=== PATIENT | female | born 1980 | race Caucasian/White ===

== ENCOUNTER 2022-12-26 18:40 | Emergency (ER) | payer MEDICARE, MEDICAID, SELFPAY ==
[2022-12-26 18:57] VITALS: BP 117/78; PULSE 76; RESP 18; TEMP 36.7; O2SAT 98; BMI 25.0
--- NOTE | 2022-12-26 18:57 | ED.ANIMALBIT ---
HPI - Animal Bite General Chief Complaint: Animal Bite Stated Complaint: dog bite Time Seen by Provider: 12/26/22 20:33 Source: patient Mode of arrival: ambulatory Limitations: no limitations History of Present Illness HPI narrative: 42-year-old female presents to the ER for evaluation of left 4th finger pain and swelling after she was bit by a stray dog 3 or 4 days ago. She states she was put on Augmentin by her primary care doctor. She is presenting today seeking tetanus shot and rabies series. She reports ongoing pain, swelling, throbbing of the finger with blood under the nail and drainage of green pus at the base of the nail. She is able to flex and extend the finger. No swelling on the pulp of the finger. No fever or chills. complaint: animal bite Onset (ago): day(s) (3) Animal: dog Description of animal: unknown animal Mechanism: bite Pain description: sharp and burning Context: playing with animal Associated symptoms: discharge from wound Treatments prior to arrival: wound dressing(s) Related Data Patient tetanus UTD: No Allergies Allergy/AdvReac Type Severity Reaction Status Date / Time trazodone Allergy Hives Verified 12/26/22 18:57 Review of Systems Review of Systems: Yes all other systems are reviewed and are negative [facility] Social History Social History Advance Directives: No Advance Directives Information Provided: Yes Physical Exam ED Vital Signs: Vital Signs - 24 hr 12/26/22 18:57 Temperature 98.1 F Pulse Rate 76 Respiratory Rate 18 Blood Pressure 117/78 Pulse Oximetry 98 Oxygen Delivery Method Room Air BMI result Body Mass Index 25.0 Appearance: Alert. Oriented X3. No acute distress. HEENT: normal inspection CVS: Normal heart rate and rhythm. Pulses normal. Respiratory: No respiratory distress. Skin: Skin warm and dry. Normal skin color. Normal skin turgor. No rashes. Extremities: left 4th digit with mild swelling of the DIP and distal finger. subungual hematoma of the proximal nail, puncture wound at the base of the nailbed as well as on the pulp of the finger. tender, no fluctuance. no induration. minimal erythma. able to flex and extend at both the PIP and DIP joints. Neuro: Oriented X 3. No motor deficit. No sensory deficit. Course Course Course Narrative: RME: 42yo F w/no sig PMHx c/o dog bite to left 4th digit s/p attempting to pet a stray dog yesterday. Admits saw PCP was started on Augmentin however did not have Tdap or rabies vaccines. Dog's vaccination status is unknown. Patient's tetanus status is unknown + puncture wound noted to left distal 4th digit as well as noted paronychia with distal erythema/swelling and tenderness. Tetanus, rabies vaccine/immune globulin and LMX ordered per patient request Full HPI, ROS and PE to be performed by primary ED provider. Medications Administered Discontinued Medications Generic Name Dose Route Start Last Admin Trade Name Freq PRN Reason Stop Dose Admin Diphtheria/Tetanus/Acell Pertussis 0.5 ml 12/26/22 19:00 12/26/22 20:38 Diphth,Pertus(Acell),Tet Adult 0.5 Ml Syringe IM 12/26/22 19:01 0.5 ml .ONCE ONE Administration Lidocaine HCl 1 appl 12/26/22 19:02 12/26/22 20:00 Lidocaine 4 % Cream Kit TOPICAL 12/26/22 19:03 1 appl ONCE ONE Administration Protocol Rabies Immune Globulin 1,448 unit 12/26/22 19:00 12/26/22 20:33 Rabies Immune Globulin/Pf 300 Unit/Ml Vial 20 unit/kg (1448 unit) 12/26/22 19:01 1,448 unit IM Administration ONCE ONE Rabies Vaccine Human Diploid Cell 1 ml 12/26/22 19:00 12/26/22 20:33 Rabies Vaccine, Human Diploid (Imovax) 1 Ml Vial IM 12/26/22 19:01 1 ml .ONCE ONE Administration Medical Decision Making Medical Decision Making MDM Narrative: 42-year-old female presents to the ER for evaluation of left 4th digit pain, swelling, drainage of pus after she was bit by a dog a couple of days ago. She is on Augmentin. She is here for Tdap and rabies series initiation. Exam with some swelling at the nail bed, erythema. I&D performed with minimal pus, some bleeding present. There is also a small subungual hematoma. Will defer nail trephonation today. tdap and rabies given. she has abx at home. no evidence of ascending infection, deeper infection such as tenosynovitis We discussed the importance of local wound care and to monitor for worsening signs or symptoms of infection. Return precautions were discussed. Stable for discharge home. Patient agrees with plan Differential Diagnosis Differential Diagnoses: The differential diagnosis associated with the presentation includes dog bite, infected dog bite, paronychia, felon, tenosynovitis Prescription Management I considered prescription management with: Pain Medication and Antibiotic Procedures Abscess I/D Site: hand Side (if applicable): left Local Anesthetic: other anesthetic (lmx) Technique: incised with blade Sent for culture/gram staining?: No Irrigation: Yes Packing used?: none Complications: pain and bleeding Critical Care Time Critical Care Time Critical Care Time: No Discharge Plan Discharge Clinical Impression: Dog bite Patient Disposition: Home, Self-Care Instructions: Animal Bite (ED) Additional Instructions: Continue the previously prescribed antibiotics. Complete the entire course and do not miss any doses. Soak your finger in warm soapy water 3 times per day. Ice and elevate the hand as needed for pain and swelling. Take Motrin and Tylenol alternating around the clock for pain. If you develop new or worsening symptoms call 911 or come back to the ER for further evaluation.
[2022-12-26] MEDS: Lidocaine 4 % Cream KIT 1 APPL TOPICAL (20:00)
[2022-12-26] MEDS: Rabies Vaccine, Human Diploid (Imovax) 1 ML VIAL IM (20:33)
[2022-12-26] MEDS: Rabies Immune Globulin/PF 300 UNIT/ML VIAL 1448 UNIT IM (20:33)
[2022-12-26] MEDS: Diphth,Pertus(ACell),Tet Adult 0.5 ML SYRINGE IM (20:38)
[2022-12-26 21:30] VITALS: BP 123/63; PULSE 74; RESP 18; O2SAT 98
== END 2022-12-26 21:30 | disposition home or self-care (01) ==
PROVIDERS: Emergency Provider Student in an Organized Health Care Education/Training Program
DX: S61.355A Open bite of left ring finger with damage to nail, initial encounter (principal); S60.142A Contusion of left ring finger with damage to nail, initial encounter; W54.0XXA Bitten by dog, initial encounter; L03.012 Cellulitis of left finger; Y93.9 Activity, unspecified; Y92.9 Unspecified place or not applicable; Y99.9 Unspecified external cause status; Z20.3 Contact with and (suspected) exposure to rabies
CPT/HCPCS: 10060; 90375; 90471; 90675; 90715; 96372; 99284

== ENCOUNTER 2022-12-29 10:49 | Outpatient (REF) | payer MEDICARE, MEDICAID, SELFPAY | END 2022-12-29 10:50 | disposition home or self-care (01) | LOC: HO.MDS 10:49 | PROVIDERS: Visit Provider Physician Assistant | DX: Z20.3 Contact with and (suspected) exposure to rabies (principal); S61.255D Open bite of left ring finger without damage to nail, subsequent encounter; W54.0XXD Bitten by dog, subsequent encounter | CPT/HCPCS: 90471; 90675 ==

== ENCOUNTER 2023-01-02 09:51 | Outpatient (REF) | payer MEDICARE, MEDICAID, SELFPAY | END 2023-01-02 09:52 | disposition home or self-care (01) | LOC: HO.MDS 09:51 | PROVIDERS: Visit Provider Physician Assistant | DX: Z20.3 Contact with and (suspected) exposure to rabies (principal); T14.8XXD Other injury of unspecified body region, subsequent encounter; W54.0XXD Bitten by dog, subsequent encounter | CPT/HCPCS: 90471; 90675 ==

== ENCOUNTER 2023-01-09 10:37 | Outpatient (REF) | payer MEDICARE, MEDICAID, SELFPAY | END 2023-01-09 10:38 | disposition home or self-care (01) | LOC: HO.MDS 10:37 | PROVIDERS: Visit Provider Physician Assistant | DX: Z20.3 Contact with and (suspected) exposure to rabies (principal); T14.8XXD Other injury of unspecified body region, subsequent encounter; W54.0XXD Bitten by dog, subsequent encounter | CPT/HCPCS: 90471; 90675 ==

== ENCOUNTER 2023-04-11 11:14 | Emergency (ER) | payer MEDICARE, MEDICAID, SELFPAY ==
--- NOTE | ~2023-04-11 | XR_ITS ---
EXAMINATION: XR CHEST CLINICAL INFORMATION: Cough. COMPARISON: None available. TECHNIQUE: Frontal view of the chest was obtained. FINDINGS: No significant abnormality is noted involving the heart, lungs, mediastinum, bony thorax or soft tissues. XR/XR chest 1V IMPRESSION: Unremarkable chest examination.
[2023-04-11 11:15] VITALS: BP 130/49; PULSE 75; RESP 18; TEMP 36.7; O2SAT 96; BMI 24.3
[2023-04-11 11:57] LABS: IDNOW Serial# 08D9AD1C; Strep A Nucleic Acid Negative (Negative)
[2023-04-11 12:31] LABS: Influenza A PCR NEGATIVE (Negative); Influenza B PCR NEGATIVE (Negative); Resp Syncy Virus RNA Qual PCR NEGATIVE (Negative); SARS COV2 PCR INHOUSE NEGATIVE (Negative)
[2023-04-11] MEDS: dexAMETHasone sod phosphate 4 MG/ML VIAL 6 MG IVPUSH (15:26)
--- NOTE | 2023-04-11 15:29 | PC.NURSE ---
pt medicated per MAR.
--- NOTE | 2023-04-11 15:36 | ED.URI ---
HPI - URI/Sore Throat General Chief Complaint: Upper Respiratory Symptoms Stated Complaint: Diff breathing Time Seen by Provider: 04/11/23 14:57 Source: patient Mode of arrival: ambulatory Limitations: no limitations History of Present Illness HPI Narrative: 43 year old female, current tobacco smoker, presents to the ED today for evaluation of cough, nasal congestion, sore throat, shortness of breath x1 week, worsening over the last 3 days. Cough is productive of yellow/green sputum. Reports difficulty sleeping due to cough. Denies sick contacts. Reports taking home COVID test that was negative. 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 States it is hard to care for herself. Admits that her mother passed from COPD and her grandfather recently just passed who was on chronic home oxygen. She states that she is afraid there is something wrong with her lungs. Denies fever, chills, eye pain, ear pain, neck pain, chest pain, nausea/vomiting, abdominal pain, diarrhea, constipation, rashes. Endorses smoking cigarettes daily however cannot quantify the amount. States that she quit for 8 days however within the last few days started smoking again due to increased stressors. Denies SI or HI. Related Data Previous Rx's Medication Instructions Recorded azithromycin 250 mg tablet See Rx Instructions PO .COMPLEX #6 04/11/23 (Zithromax Z-Jonathan) tabs benzonatate 100 mg capsule 100 mg PO BID PRN cough #14 caps 04/11/23 prednisone 20 mg tablet 20 mg PO DAILY 5 days #5 tabs 04/11/23 Allergies Allergy/AdvReac Type Severity Reaction Status Date / Time trazodone Allergy Hives Verified 04/11/23 11:15 Review of Systems Review of Systems: Constitutional: No fever, chills, fatigue, night sweats, weight changes ENT/Mouth: No ear pain, hearing loss, +nasal congestion, sinus pain, rhinorrhea, +sore throat Eyes: No eye pain, swelling, redness, vision changes, discharge Cardio: No chest pain, palpitations, ALMANZAR, orthopnea, peripheral edema Pulm: +SOB, +cough, +sputum, +wheezing, No dyspnea, hemoptysis GI: No nausea, vomiting, hematemesis, abdominal pain, diarrhea, constipation, hematochezia, melena : No irregular bleeding, dysuria, frequency, urgency, hesitancy, hematuria, flank pain, urinary flow changes, urinary incontinence or retention MSK: No back pain, neck pain, joint pain, myalgias Skin: No lesions, rashes Neuro: No weakness, numbness, paresthesias, LOC, dizziness, headache All other systems reviewed and are negative. [facility] Past Medical History Attestation statement: The following information was validated with the patient. Source: old records reviewed and nursing notes reviewed Social History Social History Alcohol intake: never Advance Directives: No Advance Directives Information Provided: No Physical Exam Vital Signs: Vital Signs: Last Vital Signs Temp 98.1 F 04/11/23 11:15 Pulse 75 04/11/23 11:15 Resp 18 04/11/23 11:15 BP 130/49 L 04/11/23 11:15 Pulse Ox 96 04/11/23 11:15 O2 Del Method Room Air 04/11/23 11:15 BMI result Body Mass Index 24.3 Vital signs stable, afebrile. Not hypoxic. Const: General: cooperative, healthy appearing, comfortable, no acute distress, alert and awake Orientation/consciousness: patient oriented x3 Limitations: no limitations HEENT: Other: + posterior oropharynx without erythema or edema. No tonsillar exudates. No peritonsillar masses. Uvula midline. Controlling secretions speaking complete sentences. Head: Yes normal to inspection Ears: hearing grossly normal bilaterally, external ears normal, TM's normal bilaterally, EAC's normal, mastoids normal and no periauricular adenopathy General nose exam: Normal external nose present, Normal nares present and No nasal discharge present Face and sinus: Yes normal facial exam and Yes sinuses nontender Teeth and gingiva: caries and poor dentition Eyes: General: appearance normal, both eyes and all related structures Conjunctivae: conjunctivae normal Sclerae: sclerae normal Pupils: Equal, round and reactive pupils present Neck: Neck: Yes normal visual inspection, Yes full ROM, Yes no lymphadenopathy and Yes no meningeal signs Resp: Effort & Inspection: normal respiratory effort, no audible wheezes, Actively coughing, no respiratory distress, no tripod positioning and no use of accessory muscles Auscultation: clear to auscultation bilaterally, no rhonchi and no wheezes Cardio: Rate: regular rate Rhythm: regular rhythm GI: Inspection: Yes normal to inspection Palpation (GI): Soft to palpation and nontender Skin: General skin exam: no rashes or lesions noted Neuro: General: patient oriented x3, gait normal, moves all extremities and no meningeal signs Cranial nerves: Yes Equal, round and reactive pupils present Extrem: Other: No calf tenderness bilaterally. General: Yes normal to inspection and Yes full ROM Course Course Course Narrative: 1530-- informed patient of negative serology results and unremarkable chest x-ray. States that she has had increased anxiety over her cough as her grandfather recently passed from COPD. Will order Decadron for patient in the ED. Patient likely has bronchitis. Will send prednisone and azithromycin to pharmacy. Will also send Tessalon Perles for cough. I will provide her with a referral to a program advocate to establish care. Discussed smoking cessation, patient verbalizes understanding. Patient has remained stable throughout ED visit today. Discussed strict return precautions. All questions answered at this time. Patient is agreeable with disposition and stable for discharge. Medications Administered Discontinued Medications Generic Name Dose Route Start Last Admin Trade Name Freq PRN Reason Stop Dose Admin Dexamethasone Sodium Phosphate 6 mg 04/11/23 14:57 04/11/23 15:26 Dexamethasone Sod Phosphate 4 Mg/Ml Vial IVPUSH 04/11/23 14:58 6 mg ONCE ONE Administration Medical Decision Making Medical Decision Making [facility] Narrative: 43 year old female, current tobacco smoker, presents to the ED today for evaluation of cough, nasal congestion, sore throat, shortness of breath x1 week, worsening over the last 3 days. Vital signs stable, afebrile. Patient is nontoxic appearing and in no acute distress. Bilaterally EACs and TMs WNL. Posterior oropharynx without erythema or edema. Uvula midline. No tonsillar exudates or. Tonsillar masses. Controlling secretions and speaking complete sentences. No cervical lymphadenopathy. Lungs are clear to auscultation bilaterally. No expiratory wheezing. RRR. Clinical concern for viral syndrome, strep throat, bronchitis, pneumonia. Unlikely pulmonary embolism, pleural effusion, lung abscess, ACS. Plan for serology and chest x-ray. Differential Diagnosis Differential Diagnoses: The differential diagnosis associated with the presentation includes as above. Admission/Observation not indicated. Lab Data [facility] Lab Attestation statement: I reviewed the patient's lab results. as above. Labs: Lab Results 04/11/23 Range/Units 11:42 Influenza Type A (PCR) NEGATIVE (Negative) Influenza Type B (PCR) NEGATIVE (Negative) RSV RNA Qual (PCR) NEGATIVE (Negative) SARS-CoV-2 RNA (RT-PCR) NEGATIVE (Negative) S. pyogenes GrpA MARISSA Negative (Negative) Independent Interpretation I performed an independent interpretation of an: Plain X-Ray Interpretation: Chest x-ray without consolidation or infiltrate, agree with radiologist's interpretation. Radiology Impression Discussion of test interpretation with radiology: I have reviewed the radiologist's reading. Radiologist Impression: XR chest 1V IMPRESSION: Unremarkable chest examination. External Record Review External record reviewed: Inpatient record Prescription Management I considered prescription management with: Antibiotic and Other (Antitussive, steroid) Chronic Conditions Patient?s care impacted by: Other (tobacco smoker) Social Determinants Patient?s care significantly limited by Social Determinants of Health including: Low income, Problems related to primary support group and Other Social Determinant of Health Procedures Smoking Cessation Time Spent Discussing Smoking Cessation w/Patient (min): 10 Patient Acknowledges Need for Cessation: Yes Critical Care Time Critical Care Time Critical Care Time: No Discharge Plan Discharge Clinical Impression: Bronchitis Patient Disposition: Home, Self-Care Instructions: Acute Bronchitis (ED) Additional Instructions: Your chest x-ray was normal. You tested negative for COVID, flu, RSV, strep throat. You likely has bronchitis. Tessalon Perles have been sent to your pharmacy. Take these as needed for cough. Azithromycin is antibiotic that has been sent to your pharmacy. Take this as directed over the next 5 days. Prednisone is a steroid that has been sent to your pharmacy. Take this over the next 5 days. You have also been provided with a referral to a program advocate. You may call them to establish care. They will not call you. If symptoms persist or worsen please return to the emergency department. In the case of an emergency call 911. Prescriptions: New benzonatate 100 mg capsule 100 mg PO BID PRN (Reason: cough) Qty: 14 0RF azithromycin [Zithromax Z-Jonathan] 250 mg tablet See Rx Instructions .ROUTE .COMPLEX Qty: 6 0RF Rx Instructions: For 250 mg dose pack: take 500 mg today (day 1), then 250 mg for 4 days (days 2-5) prednisone 20 mg tablet 20 mg PO DAILY 5 Days Qty: 5 0RF Referrals: [facility] [Provider Group] Physician,Unknown J [Primary Care Provider] - Stand Alone Forms: Work/School Release
== END 2023-04-11 15:56 | disposition home or self-care (01) ==
PROVIDERS: Emergency Provider Emergency Medicine
DX: R05.9 Cough, unspecified (principal); R09.81 Nasal congestion; J02.9 Acute pharyngitis, unspecified; R06.02 Shortness of breath; Z20.822 Contact with and (suspected) exposure to COVID-19; Z20.828 Contact with and (suspected) exposure to other viral communicable diseases; Z72.0 Tobacco use
CPT/HCPCS: 0241U; 71045; 87651; 96374; 99282; 99284; J1100

== ENCOUNTER 2023-05-19 19:43 | Emergency (ER) | payer MEDICARE, MEDICAID, SELFPAY ==
--- NOTE | ~2023-05-19 | XR_ITS ---
EXAMINATION: XR CHEST CLINICAL INFORMATION: Syncope COMPARISON: Previous chest x-ray 2022 TECHNIQUE: Frontal view of the chest was obtained. FINDINGS: No significant abnormality is noted involving the heart, lungs, mediastinum, bony thorax or soft tissues. XR/XR chest 1V IMPRESSION: Unremarkable examination.
--- NOTE | 2023-05-19 19:45 | ECG_ITS ---
Test Reason : CHEST PAIN Blood Pressure : / mmHG Vent. Rate : 064 BPM Atrial Rate : 064 BPM P-R Int : 174 ms QRS Dur : 070 ms QT Int : 396 ms P-R-T Axes : 033 026 051 degrees QTc Int : 408 ms Normal sinus rhythm Low voltage QRS Borderline ECG No previous ECGs available Referred By: Christina Pantoja Electronically Signed By:David Singh
--- NOTE | 2023-05-19 19:46 | ED_ITS ---
HPI - Chest Pain General Chief Complaint: Chest Pain Stated Complaint: chest pain Related Data Previous Rx's Medication Instructions Recorded azithromycin 250 mg tablet See Rx Instructions PO .COMPLEX #6 04/11/23 (Zithromax Z-Jonathan) tabs benzonatate 100 mg capsule 100 mg PO BID PRN cough #14 caps 04/11/23 prednisone 20 mg tablet 20 mg PO DAILY 5 days #5 tabs 04/11/23 Allergies Allergy/AdvReac Type Severity Reaction Status Date / Time trazodone Allergy Hives Verified 04/11/23 11:15 [facility] Social History Social History Alcohol intake: never Advance Directives: No Advance Directives Information Provided: No Physical Exam 2 Vital Signs: Vital Signs: Last Vital Signs Temp 98.2 F 05/19/23 19:48 Pulse 78 05/19/23 19:48 Resp 18 05/19/23 19:48 BP 130/94 H 05/19/23 19:48 Pulse Ox 98 05/19/23 19:48 O2 Del Method Room Air 05/19/23 19:48 BMI result Body Mass Index 25.2 Course Course Course Narrative: RME: 43 year-old F w/ PMHx presenting to the ED c/o syncopal episode while in the bathroom w/grandson (helping him) around 12:30pm, then woke up with left sided CP radiating down LUE w/assoc tingling. Denies head trauma or LOC EKG, Labs, UA, orthostatics ordered Full HPI, ROS and PE to be performed by primary ED provider. Medical Decision Making Lab Data 05/19/23 19:59 05/19/23 19:59 Labs: Lab Results 05/19/23 Range/Units 19:59 WBC 7.1 (4.8-10.8) X10*3/uL RBC 4.84 (4.20-5.50) X10*6/uL Hgb 14.2 (12.0-16.0) g/dl Hct 42.4 (37.0-47.0) % MCV 87.6 (80.0-98.0) fL MCH 29.3 (27.0-33.0) pg MCHC 33.5 (31.0-35.0) g/dl RDW 13.2 (11.0-16.0) % Plt Count 389 (160-400) X10*3/uL MPV 9.6 (9.4-12.3) fL Immature Gran % (Auto) 0.1 (0.0-0.4) % Neut % (Auto) 44.0 L (45-73) % Lymph % (Auto) 42.5 H (20-40) % [place] % (Auto) 11.7 H (2-11) % Eos % (Auto) 1.3 (0-4) % Baso % (Auto) 0.4 (0-2) % Lymph # (Auto) 3.0 (1.2-4.9) X10*3/uL [place] # (Auto) 0.8 (0.1-1.2) X10*3/uL Eos # (Auto) 0.1 (0.0-0.4) X10*3/uL Baso # (Auto) 0.0 (0.0-0.2) X10*3/uL Abs Immat Gran (auto) 0.01 (0.00-0.03) X10*3/uL Absolute Neuts (auto) 3.1 (2.0-8.3) x10*3/uL Absolute Nucleated RBC 0.000 (0.0-0.012) X10*3/uL Nucleated RBC % (auto) 0.0 (0.0-0.2) /100WBC PT 10.9 L (11.1-13.3) SEC INR 0.9 (0.9-1.1) Sodium 138 (135-145) mmol/L Potassium 4.0 (3.3-5.1) mmol/L Chloride 108 (96-108) mmol/L Carbon Dioxide 24 (22-29) mmol/L Anion Gap 10 L (12-20) BUN 13 (9-16) mg/dL Creatinine 0.85 (0.5-1.4) mg/dL Estim Creat Clear Calc 82.1 Estimated GFR > 60 Random Glucose 102 (60-115) mg/dL Calcium 9.1 (8.4-10.2) mg/dL Magnesium 2.0 (1.6-2.6) mg/dL Total Bilirubin 0.3 (0.0-1.0) mg/dL Direct Bilirubin 0.1 (0.0-0.5) mg/dL AST 17 (5-31) U/L ALT 9 (0-31) U/L Alkaline Phosphatase 78 (39-117) U/L Troponin I High Sens < 2.7 (<3.5-17.0) ng/L Total Protein 7.1 (6.5-8.0) g/dL Albumin 4.2 (3.5-5.0) g/dL COVID-19 (FER) Negative (Negative) COVID-19 Clin Com See Note Influenza Type A (MARISSA) Negative (Negative) Influenza Type B (MARISSA) Negative (Negative) Influenza A & B Note See Note Discharge Plan Discharge Clinical Impression: Chest pain Patient Disposition: Left W/O Completing Treatment Prescriptions: No Action benzonatate 100 mg capsule 100 mg PO BID PRN (Reason: cough) Qty: 14 0RF azithromycin [Zithromax Z-Jonathan] 250 mg tablet See Rx Instructions .ROUTE .COMPLEX Qty: 6 0RF Rx Instructions: For 250 mg dose pack: take 500 mg today (day 1), then 250 mg for 4 days (days 2-5) prednisone 20 mg tablet 20 mg PO DAILY 5 Days Qty: 5 0RF Discharge Date/Time: 05/19/23 21:30
[2023-05-19 19:48] VITALS: BP 130/94; PULSE 78; RESP 18; TEMP 36.8; O2SAT 98; BMI 25.2
[2023-05-19 20:07] LABS: MANUAL DIFF FLAG NO
[2023-05-19 20:08] LABS: Basophils Percent Auto 0.4 % (0-2); Eosinophils Absolute Auto 0.1 X10*3/uL (0.0-0.4); Eosinophils Percent Auto 1.3 % (0-4); Hematocrit 42.4 % (37.0-47.0); Hemoglobin 14.2 g/dl (12.0-16.0); Imm Gran Abs Auto 0.01 X10*3/uL (0.00-0.03); Imm Gran Pct Auto 0.1 % (0.0-0.4); Lymphocytes Percent Auto 42.5 % (20-40); Mean Corpuscular HGB Conc 33.5 g/dl (31.0-35.0); Mean Corpuscular Hemoglobin 29.3 pg (27.0-33.0); Mean Corpuscular Volume 87.6 fL (80.0-98.0); Mean Platelet Volume 9.6 fL (9.4-12.3); Monocytes Absolute Auto 0.8 X10*3/uL (0.1-1.2); Monocytes Percent Auto 11.7 % (2-11); Neutrophils Absolute Auto 3.1 x10*3/uL (2.0-8.3); Platelet Count 389 X10*3/uL (160-400); Red Blood Count 4.84 X10*6/uL (4.20-5.50); Red Cell Distribution Width 13.2 % (11.0-16.0); White Blood Count 7.1 X10*3/uL (4.8-10.8)
[2023-05-19 20:14] LABS: INTERNATIONAL NORM RATIO 0.9 (0.9-1.1); Prothrombin Time 10.9 SEC (11.1-13.3)
[2023-05-19 20:25] LABS: Alanine Aminotransferase 9 U/L (0-31); Albumin Level 4.2 g/dL (3.5-5.0); Alkaline Phosphatase 78 U/L (39-117); Anion Gap 10 (12-20); Aspartate Amino Transferase 17 U/L (5-31); Bilirubin Direct 0.1 mg/dL (0.0-0.5); Bilirubin Total 0.3 mg/dL (0.0-1.0); Blood Urea Nitrogen 13 mg/dL (9-16); Calcium 9.1 mg/dL (8.4-10.2); Carbon Dioxide 24 mmol/L (22-29); Chloride 108 mmol/L (96-108); Creatinine Clr Calc Pharmacy 82.1; Estimated Glomerular Filt Rate > 60; Glucose Random 102 mg/dL (60-115); Sodium 138 mmol/L (135-145); Total Protein 7.1 g/dL (6.5-8.0)
[2023-05-19 20:32] LABS: Troponin-I High Sensitivity < 2.7 ng/L (<3.5-17.0)
[2023-05-19 21:18] LABS: COVID-19 Test Negative (Negative); IDNOW Serial# 08D9AD1C; IDNOW Serial# 152EDE1D; Influenza A Negative (Negative); Influenza B2 Negative (Negative)
--- NOTE | 2023-05-19 21:29 | PC.NURSE ---
Pt made registration staff aware that she is leaving and has to go home.
== END 2023-05-19 21:30 | disposition left against medical advice (07) ==
LOC: HO.ED 21:29
PROVIDERS: Physician Assistant; Emergency Provider Emergency Medicine
DX: R07.89 Other chest pain (principal); R55 Syncope and collapse; Z11.52 Encounter for screening for COVID-19; Z79.899 Other long term (current) drug therapy
CPT/HCPCS: 71045; 80048; 80076; 83735; 84484; 85025; 85610; 87502; 87635; 93005; 99283

== ENCOUNTER → 2023-05-19 19:45 | Outpatient (BNV) | payer MEDICARE, MEDICAID, SELFPAY | PROVIDERS: Emergency Provider Emergency Medicine; Visit Provider Internal Medicine Cardiovascular Disease | DX: R07.9 Chest pain, unspecified (principal); R94.31 Abnormal electrocardiogram [ECG] [EKG] | CPT/HCPCS: 93010 ==

== ENCOUNTER 2024-10-26 21:28 | Emergency (ER) | payer MEDICARE, MEDICAID, SELFPAY ==
--- OUTSIDE RECORDS SUMMARY | 2021-10-08 10:30 | XMS_ITS | Continuity of Care Document ---
Author Organization [facility] Address [address] [place] [address] Care Team Providers Care Trimmer Press Clippings Name Role Phone Harmeet Salazar DMD Unavailable Unavailable Allergies, Adverse Reactions, Alerts Substance Reaction Status Criticality No Known Allergies Active No Inform ation Medications Medication Instructions Dosage Effective Dates (start - stop) Status Comments amoxicillin 500 mg capsule take 1 capsule by oral route every 8 hours 500 MG - No Longer Active ibuprofen 800 mg tablet take 1 tablet by oral route 3 times every day with food 800 MG - No Longer Active Procedures Procedure Date Limited Oral Evaluation-Problem Focused Intraoral-Periapical First Film 022 Intraoral-Periapical Each Additional Mike m Intraoral-Periapical Each Additional Mike m Office Visit For Observation (During [facility] Office Visit For Observation (During [facility] Extraction, Erupted Tooth Or Exposed Dianelys t ([facility] Office Visit For Observation (During [facility] Office Visit For Observation (During [facility] Limited Oral Evaluation-Problem Focused Intraoral-Periapical First Film 013 Intraoral-Periapical Each Additional Mike m Panoramic Film Extraction, Erupted Tooth Or Exposed Dianelys t ([facility] Advance Directives Directive Yes / No Effective Date File Name No Information Encounters Encounter Description Practice Location Reason(s) For Visit Diagnoses Date Provider Providers Copied on Encounter [facility] [place], [address] [place] [address], [id number], [facility] Encounter for dental examination Martin Ga. [address], [place], [place], [id number], [place]. tel:[phone] [facility] [place], [address] [place] [address], [id number], [facility] Dental examination No Information [facility] [place], [address] [place] [address], [id number], [facility] Dental examination No Information [facility] [place], [address] [place] [address], [phone], [facility] Dental caries, unspecified No Information [facility] [place], [address] [place] [address], [id number], [facility] Dental examination No Information [facility] [place], [address] [place] [address], [id number], [facility] Dental examination No Information Family History Family Member Type Diagnosis Age At Onset Mother Problem (finding) ADD/ADHD Payers Payer name Insurance type Covered constitution party ID Authorcassidya marci(s) D 25 Percent Slide A [id number] Social History Type Description Quantity Date Captured Comments Alcohol Use Details No Caffeine Use Details Tobacco Use Status No Information Smoking Status No Information Sex Female Vital Signs Date / Time: Height Weight BMI Pulse Rate Blood Pressure Temperature Respiratory Rate Body Surface Area Head Circumference Head Circ. Percentile Wt./Raffaele. Percentile BMI percentile Pulse Ox Inhaled Ox 3:10 PM 67.00 in 73.119 kg (161.20 lbs) 25.2 5 kg/m eter (2) 96.90 F 1.86 meter(2) Chief Complaint And Reason For Visit No Information Reason For Referral Reason For Referral No Information Plan Of Treatment Date Type Action Status Goal Tdap. Due on due Goal Depression screening. Due on due Goal Lipid panel. Due on 022 due Goal Td vaccine. Due on 22 due Goal Pap/HPV testing. Due on due Goal Influenza vaccine. Due on due Referral Ordered: Referrals: Oral Maxillofacial Surgery. Evaluate and treat ordered History Of Present Illness Encounter Date Complaint History Of Prese nt Illness No Information Functional Status Date Functional Assessmen t Pain Score 0/10 Instructions Date Instruction Additional Infor zaira Discussed referral Related to En counter for dental examination Discussed healing WNL's Related to Dental examination Discussed healing process Relate d to Dental examination Discussed post op inst Related t o Dental caries, unspecified Discussed OH Related to Denta l examination Discussed healing process Assessments Type Assessment Date assessment Encounter for dental examination Patient Care Teams Name Effective Dates (start - stop) Status Members No Information
[2024-10-26 21:36] VITALS: BP 142/42; PULSE 88; RESP 16; TEMP 36.3; O2SAT 96; BMI 24.6
--- OUTSIDE RECORDS SUMMARY | 2024-10-26 22:38 | XMS_ITS | Clinical Summary ---
Author Organization [facility] Address [address] [place] [address] Phone Care Team Providers Care [employer] Commander Name Role Phone Physician, Pcp Unknown Primary Care Provider Marybeth vailable Allergies Active Allergy Reactions Criticality Noted Date Comments Trazodone Hives Low 04/19/2024 Social History Tobacco Use Types Packs/Day Years Used Date Smoking Tobacco: Never Assessed Comments Unknown Sex and Gender Information Value Date Recorded Sex Assigned at Not on file Legal Sex Female 8:44 PM EST Gender Identity Not on file Sexual Orientation Not on file Last Filed Vital Signs Vital Sign Reading Time Taken Comments Blood Pressure 113/70 04/19/2024 11:52 PM EST Pulse 67 04/19/2024 11:52 PM EST Temperature 36.3 C (97.3 F) 04/19/2024 11:52 PM EST Respiratory Rate 18 04/19/2024 11:52 PM EST Oxygen Saturation 100% 04/19/2024 11:52 PM EST Inhaled Oxygen Concentration - - Weight 72.6 kg (160 lb) 04/19/2024 11:52 PM EST Height 170.2 cm (5' 7 ) 04/19/2024 11:52 PM EST Body Mass Index 25.06 04/19/2024 11:52 PM EST Plan of Treatment Health Maintenance Due Date Last Done Comments Breast Cancer Screening 1979 Hepatitis B Vaccines (1 of 3 - 19+ 3-dose series) 1998 Cervical Cancer Screening: P ap Smear 01/14/2000 Cholesterol Screening (Lipid Panel) 05/21/2023 Colorectal Cancer Screening: Colonoscopy 05/21/2023 Depression Screening 05/21/2023 HIV Screening 05/21/2023 Hepatitis C Screening 05/21/2023 Medicare Annual Wellness Visit 05/21/2023 Social Influencers of Health Screening 05/21/2023 COVID-19 Vaccine ( - 2023-2 5 season) 2023 Influenza Vaccine (Season Ended) 2024 DTaP,Tdap,and Td Vaccines (2 - Td or Tdap) 12/26/2032 12/26/2022 HIB Vaccines Aged Out No longer eligi ble based on patient's age to complete this topic HPV Vaccines Aged Out No longer eligi ble based on patient's age to complete this topic Hepatitis A Vaccines Aged Out No long er eligible based on patient's age to complete this topic IPV Vaccines Aged Out No longer eligi ble based on patient's age to complete this topic MMR Vaccines Aged Out No longer eligi ble based on patient's age to complete this topic Meningococcal ACWY Vaccine Aged Out N o longer eligible based on patient's age to complete this topic Meningococcal B Vaccine Aged Out No l onger eligible based on patient's age to complete this topic Pneumococcal Vaccine: Pediat rics (0 to 5 Years) and At-Risk Patients (6 to 64 Years) Aged Out No longer eligi ble based on patient's age to complete this topic RSV Immunization Patients Un lashon 20 months Aged Out No longer eligible b ased on patient's age to complete this topic Varicella Vaccines Aged Out No longer eligible based on patient's age to complete this topic Insurance MEDICARE Care Teams Police Reserves Commander Relationship Specialty Start Date End Date Physician, Pcp Unknown PCP - General 04/20/24
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
[2024-10-27] MEDS: Lidocaine 4 % Cream KIT 1 APPL TOPICAL (00:28)
[2024-10-27 00:42] VITALS: BP 139/82; PULSE 91; RESP 16; TEMP 36.8; O2SAT 98
[2024-10-27 00:43] VITALS: BP 139/82; PULSE 91; RESP 16; TEMP 36.8; O2SAT 98
== END 2024-10-27 00:43 | disposition home or self-care (01) ==
PROVIDERS: Emergency Provider Emergency Medicine
DX: A60.04 Herpesviral vulvovaginitis (principal); R26.2 Difficulty in walking, not elsewhere classified; R30.0 Dysuria
CPT/HCPCS: 99283; 99284